=== PATIENT | female | born 1940 | race Caucasian/White ===

== ENCOUNTER 2019-01-30 13:48 | Emergency (ER) | payer MEDICARE ==
--- NOTE | 2019-01-30 14:26 | EDM.PDOC ---
"ED HPI GENERAL MEDICAL PROBLEM - General Chief Complaint: General Stated Complaint: DIZZY [id number] Time Seen by Provider: 01/30/19 14:15 Source of Information: Reports: Patient, Old Records, RN, RN Notes Reviewed History Limitations: Reports: No Limitations - History of Present Illness INITIAL COMMENTS - FREE TEXT/NARRATIVE: Pt presents to ER by POV with c/o dizziness that began yesterday. Today the dizziness return and was so severe that she had to hang her head and felt that if she tried to get up and walk she would fall over from being off balance. She denies syncope, near syncope, chest pain, shortness of breath, visual changes, difficulty swallowing or speaking, slurred speech, or any motor weakness. Pt states that last week she thought she was catching a cold from her friend. She reports nasal congestion, sore throat and ringing in the ear. Today just prior to onset of the dizziness she reports experiencing intense ringing in the right ear. She denies nausea, vomiting, or headache. She reports a history of vertigo once in the past. Duration: Recurring Location: Reports: Generalized Quality: Reports: Other (denies pain) Severity: Severe Improves with: Reports: None Worsens with: Reports: Movement Associated Symptoms: Reports: No Other Symptoms - Related Data Allergies Allergy/AdvReac Type Severity Reaction Status Date / Time Penicillins Allergy Cannot Verified 01/30/19 14:11 Remember Home Meds: Home Meds Atenolol 01/30/19 [History] Past Medical History HEENT History: Reports: Impaired Vision Cardiovascular History: Reports: Hypertension Genitourinary History: Reports: Renal Calculus Neurological History: Reports: Vertigo Oncologic (Cancer) History: Reports: Breast - Infectious Disease History Infectious Disease History: Reports: Chicken Pox, Measles - Past Surgical History GI Surgical History: Reports: Cholecystectomy Female Surgical History: Reports: Kidney stone extraction Oncologic Surgical History: Reports: Mastectomy, Other (See Below) Other Oncologic Surgeries/Procedures: bilateral Social & Family History - Family History Family Medical History: Noncontributory - Tobacco Use Smoking Status *Q: Never Smoker Second Hand Smoke Exposure: No - Caffeine Use Caffeine Use: Reports: Coffee - Recreational Drug Use Recreational Drug Use: No - Living Situation & Occupation Living situation: Reports: , with Spouse Occupation: Retired ED ROS GENERAL - Review of Systems Review Of Systems: ROS reveals no pertinent complaints other than HPI. ED EXAM, GENERAL - Physical Exam Exam: See Below Exam Limited By: No Limitations General Appearance: Alert, WD/WN, No Apparent Distress Eye Exam: Bilateral Eye: EOMI, Normal Fundi, Nystagmus (lateral gaze L>R), PERRL Ears: Normal External Exam, Normal Canal, Other (TMs dull B/L and retracted on the right.) Nose: No Blood, Other (mild nasal congestion) Throat/Mouth: Normal Inspection, Normal Lips, Normal Teeth, Normal Gums, Normal Oropharynx, Normal Voice, No Airway Compromise Head: Atraumatic, Normocephalic Neck: Normal Inspection, Supple, Non-Tender, Full Range of Motion. No: Carotid Bruit Respiratory/Chest: No Respiratory Distress, Lungs Clear, Normal Breath Sounds, No Accessory Muscle Use, Chest Non-Tender Cardiovascular: Regular Rate, Rhythm, No Edema GI/Abdominal: Normal Bowel Sounds, Soft, Non-Tender Back Exam: Normal Inspection Extremities: Normal Inspection Neurological: Alert, Oriented, CN II-XII Intact, Normal Cognition, Normal Gait, No Motor/Sensory Deficits Psychiatric: Normal Mood Skin Exam: Warm, Dry, Intact, Normal Color, No Rash EKG INTERPRETATION EKG Date: 01/30/19 Time: 14:19 Rhythm: Other (SR) Rate (Beats/Min): 75 [place]: LAD-Left [place] Deviation (LHV) P-Wave: Present QRS: Normal ST-T: Normal QT: Normal Comparison: NA - No Prior EKG Course - Vital Signs Last Recorded V/S: Last Vital Signs Temp 36.8 C 01/30/19 14:11 Pulse 77 01/30/19 14:11 Resp 16 01/30/19 14:11 BP 156/67 H 01/30/19 14:11 Pulse Ox 99 01/30/19 14:11 Orthostatic Blood Pressure [ 159/70 Standing] Orthostatic Blood Pressure [ 157/78 Sitting] Orthostatic Blood Pressure [ 150/72 Supine] Not orthostatic. - Orders/Labs/Meds Orders: Active Orders 24 hr Category Date Time Status EKG Documentation Completion [RC] URGENT Care 01/30/19 14:28 Active Head wo Cont [CT] Urgent Exams 01/30/19 14:36 Taken CULTURE URINE [RM] Stat Lab 01/30/19 15:31 Received Ciprofloxacin [Ciprofloxacin HCl] Med 01/30/19 15:56 Once 500 mg PO ONETIME ONE Meclizine [Antivert] Med 01/30/19 15:57 Once 25 mg PO ONETIME ONE Labs: Laboratory Tests 01/30/19 01/30/19 01/30/19 Range/Units 14:56 14:56 15:31 WBC 8.9 (5.0-10.0) 10^3/uL RBC 4.42 (4.2-5.4) 10^6/uL Hgb 14.0 (12.0-16.0) g/dL Hct 43.0 (37.0-47.0) % MCV 97.3 (80-100) fL MCH 31.7 (27.0-34.0) pg MCHC 32.6 L (33.0-35.0) g/dL Plt Count 225 (150-450) 10^3/uL Neut % (Auto) 62.9 (42.2-75.2) % Lymph % (Auto) 21.2 (20.5-50.1) % [place] % (Auto) 14.9 H (2-8) % Eos % (Auto) 0.6 L (1.0-3.0) % Baso % (Auto) 0.4 (0.0-1.0) % Sodium 140 (135-145) mmol/L Potassium 3.2 L (3.6-5.0) mmol/L Chloride 101 (101-111) mmol/L Carbon Dioxide 29.0 (21.0-31.0) mmol/L Anion Gap 13.2 BUN 21 H (7-18) mg/dL Creatinine 0.9 (0.6-1.3) mg/dL Est Cr Clr Drug Dosing 42.06 mL/min Estimated GFR (MDRD) > 60 BUN/Creatinine Ratio 23.33 Glucose 132 H (74-105) mg/dL Calcium 9.4 (8.4-10.2) mg/dl Total Bilirubin 0.7 (0.2-1.0) mg/dL AST 23 (10-42) IU/L ALT 16 (10-60) IU/L Alkaline Phosphatase 67 (42-121) IU/L Total Protein 7.3 (6.7-8.2) g/dl Albumin 4.1 (3.2-5.5) g/dl Globulin 3.2 Albumin/Globulin Ratio 1.28 Urine Color Yellow (YELLOW) Urine Appearance Turbid (CLEAR) Urine pH 7.0 (5.0-9.0) Ur Specific [place] 1.020 (1.005-1.030) Urine Protein Negative (NEGATIVE) Urine Glucose (UA) Negative (NEGATIVE) Urine Ketones Negative (NEGATIVE) Urine Occult Blood Moderate H (NEGATIVE) Urine Nitrite Negative (NEGATIVE) Urine Bilirubin Negative (NEGATIVE) Urine Urobilinogen 0.2 (0.2-1.0) mg/dL Ur Leukocyte Esterase Small H (NEGATIVE) Urine RBC 20-30 H /HPF Urine WBC 40-50 H (0-5/HPF) /HPF Ur Epithelial Cells Few (NOT SEEN) /HPF Amorphous Sediment Few (NOT SEEN) /HPF Urine Bacteria Moderate H (0-FEW/HPF) /HPF Urine Mucus Rare (NOT SEEN) /LPF - Radiology Interpretation Free Text/Narrative:: [facility] Final Radiology Report Call: [phone] assistance Online chat: [email or web address] Name: DEBORA TOMLINSON Age: 78Years F Date: 01/30/2019 SSN: -- : [id number] Study: CT HEAD WO Requesting Physician: HOLLI SHERMAN Images: 151 Addl Studies: Provided Clinical History: acute new onset dizziness Contrast: Without Contrast Medium: Contrast Amount: Contrast Method: Page 1 of 2 EXAM: CT Head Without Contrast EXAM DATE/TIME: 01/30/2019 2:48 PM CLINICAL HISTORY: 78 years old, female; Signs and symptoms; Dizziness; Patient HX: History of breast cancer in 1998 and 2001. High blood pressure, on medication; Additional info: Acute new onset dizziness TECHNIQUE: Imaging protocol: Axial computed tomography images of the head without contrast. Coronal and sagittal reformatted images were created and reviewed. Radiation optimization: All CT scans at this facility use at least one of these dose optimization techniques: automated exposure control; mA and/or kV adjustment per patient size (includes targeted exams where dose is matched to clinical indication); or iterative reconstruction. COMPARISON: No relevant prior studies available. FINDINGS: Brain: Normal. No hemorrhage. Unremarkable white matter. No mass effect. Ventricles: Normal. No ventriculomegaly. Bones/joints: Unremarkable. No acute fracture. Sinuses: Visualized sinuses are unremarkable. No fluid levels. Mastoid air cells: Visualized mastoid air cells are well aerated. No mastoid effusion. Soft tissues: Unremarkable. IMPRESSION: No acute intracranial abnormality. DEBORA TOMLINSON | Final Radiology Report CONFIDENTIALITY STATEMENT This report is intended only for use by the referring physician, and only in accordance with law. If you received this in error, call [phone]. Page 2 of 2 Thank you for allowing us to participate in the care of your patient. Dictated and Authenticated by: Demetri Rader DO 01/30/2019 3:12 PM Central Time ([place] & [place]) Departure - Departure Time of Disposition: 15:58 Disposition: Home, Self-Care 01 Condition: Fair Clinical Impression: Labyrinthitis of right ear UTI (urinary tract infection) Qualifiers: Urinary tract infection type: site unspecified Hematuria presence: without hematuria Qualified Code(s): N39.0 - Urinary tract infection, site not specified - Discharge Information *PRESCRIPTION DRUG MONITORING PROGRAM REVIEWED*: No *COPY OF PRESCRIPTION DRUG MONITORING REPORT IN PATIENT VINCE: No Instructions: Labyrinthitis, [id number], Urinary Tract Infection, Adult, Easy -to-Read Forms: ED Department Discharge Additional Instructions: Rx: Cipro 500mg Rx: Meclizine 25mg Follow up in clinic in 7 to 10 days for recheck. - My Orders Last 24 Hours: My Active Orders 01/30/19 14:28 EKG Documentation Completion [RC] URGENT 01/30/19 14:36 Head wo Cont [CT] Urgent 01/30/19 15:31 CULTURE URINE [RM] Stat 01/30/19 15:56 Ciprofloxacin [Ciprofloxacin HCl] 500 mg PO ONETIME ONE 01/30/19 15:57 Meclizine [Antivert] 25 mg PO ONETIME ONE - Assessment/Plan Last 24 Hours: My Active Orders 01/30/19 14:28 EKG Documentation Completion [RC] URGENT 01/30/19 14:36 Head wo Cont [CT] Urgent 01/30/19 15:31 CULTURE URINE [RM] Stat 01/30/19 15:56 Ciprofloxacin [Ciprofloxacin HCl] 500 mg PO ONETIME ONE 01/30/19 15:57 Meclizine [Antivert] 25 mg PO ONETIME ONE"
[2019-01-30 15:33] LABS: ANION GAP 13.2; CHLORIDE,CL 101 mmol/L (101-111); SODIUM,NA 140 mmol/L (135-145)
[2019-01-30] MEDS ORDERED: Ciprofloxacin 500 MG Tab PO ONE (15:56)
[2019-01-30] MEDS ORDERED: Meclizine 12.5 MG Tab PO ONE (15:57)
== END 2019-01-30 16:19 | disposition home or self-care (01) ==
LOC: DL.ED 13:48
DX: N39.0 Urinary tract infection, site not specified (principal); H83.01 Labyrinthitis, right ear; I10 Essential (primary) hypertension; Z88.0 Allergy status to penicillin
CPT/HCPCS: 36415; 70450; 80053; 81001; 85025; 87086; 87088; 87186; 93005; 99284; A9270